=== PATIENT | female | born 1945 | race Caucasian/White ===

== ENCOUNTER 2023-12-20 15:28 | Outpatient (RCR) | payer MEDICARE, OTHER, SELFPAY | END 2023-12-20 23:59 | disposition home or self-care (01) | LOC: RPT 15:28 | PROVIDERS: ATTENDING PHYSICIAN Orthopaedic Surgery; FAMILY PHYSICIAN Family Medicine | DX: Z47.1 Aftercare following joint replacement surgery (principal); Z73.6 Limitation of activities due to disability; R26.89 Other abnormalities of gait and mobility; M62.81 Muscle weakness (generalized); Z96.641 Presence of right artificial hip joint | CPT/HCPCS: 97010; 97110; 97116; 97163; 97530 ==

== ENCOUNTER 2024-01-17 14:48 | Outpatient (RCR) | payer MEDICARE, OTHER, SELFPAY | END 2024-01-18 10:22 | disposition home or self-care (01) | LOC: RPT 14:48 | PROVIDERS: ATTENDING PHYSICIAN Orthopaedic Surgery; FAMILY PHYSICIAN Family Medicine | DX: Z47.1 Aftercare following joint replacement surgery (principal); Z73.6 Limitation of activities due to disability; R26.89 Other abnormalities of gait and mobility; R26.2 Difficulty in walking, not elsewhere classified; M62.81 Muscle weakness (generalized); M25.551 Pain in right hip; Z96.641 Presence of right artificial hip joint | CPT/HCPCS: 97110; 97112 ==

== ENCOUNTER → 2024-09-23 14:02 | Outpatient (REF) | payer MEDICARE, OTHER, SELFPAY | LOC: WDC 14:02 | PROVIDERS: ATTENDING PHYSICIAN Family Medicine | DX: Z12.31 Encounter for screening mammogram for malignant neoplasm of breast (principal) | CPT/HCPCS: 77063; 77067 ==

== ENCOUNTER → 2025-02-06 15:45 | Outpatient (REF) | payer MEDICARE, OTHER, SELFPAY | LOC: RCS 15:45 | PROVIDERS: ATTENDING PHYSICIAN Internal Medicine; FAMILY PHYSICIAN Family Medicine | DX: I48.19 Other persistent atrial fibrillation (principal); I10 Essential (primary) hypertension; I35.1 Nonrheumatic aortic (valve) insufficiency; I36.1 Nonrheumatic tricuspid (valve) insufficiency; I48.4 Atypical atrial flutter | CPT/HCPCS: 93306 ==

== ENCOUNTER → 2025-09-25 12:20 | Outpatient (REF) | payer MEDICARE, OTHER, SELFPAY | LOC: WDC 12:20 | PROVIDERS: ATTENDING PHYSICIAN Family Medicine | DX: Z12.31 Encounter for screening mammogram for malignant neoplasm of breast (principal) | CPT/HCPCS: 77063; 77067 ==